=== PATIENT | female | born 1960 | race Caucasian/White ===

== ENCOUNTER → 2020-08-04 13:45 | Outpatient (BNVA) | payer BC, SELFPAY | PROVIDERS: Family Provider Family Medicine; PCP Family Medicine; Visit Provider Obstetrics & Gynecology | DX: Z12.4 Encounter for screening for malignant neoplasm of cervix (principal) | CPT/HCPCS: 88175 ==

== ENCOUNTER → 2022-08-26 09:44 | Outpatient (BNVA) | payer BC, SELFPAY | PROVIDERS: Family Provider Family Medicine; PCP Family Medicine; Visit Provider Family Medicine | DX: Z51.81 Encounter for therapeutic drug level monitoring (principal); E03.9 Hypothyroidism, unspecified; I73.9 Peripheral vascular disease, unspecified; R73.09 Other abnormal glucose; E55.9 Vitamin D deficiency, unspecified | CPT/HCPCS: 80053; 80061; 82306; 83036; 84439; 84443; 85025 ==

== ENCOUNTER → 2022-11-10 09:00 | Outpatient (BNVA) | payer BC, SELFPAY | PROVIDERS: Family Provider Family Medicine; PCP Family Medicine; Visit Provider Family Medicine | DX: I25.10 Atherosclerotic heart disease of native coronary artery without angina pectoris (principal); Z79.899 Other long term (current) drug therapy | CPT/HCPCS: 80061 ==

== ENCOUNTER → 2023-02-21 12:06 | Outpatient (BNVA) | payer MEDICARE, SELFPAY | PROVIDERS: Family Provider Family Medicine; PCP Family Medicine; Visit Provider Internal Medicine Cardiovascular Disease | DX: E03.9 Hypothyroidism, unspecified (principal); R07.9 Chest pain, unspecified; E78.5 Hyperlipidemia, unspecified; I25.10 Atherosclerotic heart disease of native coronary artery without angina pectoris; I65.29 Occlusion and stenosis of unspecified carotid artery; Z48.812 Encounter for surgical aftercare following surgery on the circulatory system; Z98.890 Other specified postprocedural states; I65.9 Occlusion and stenosis of unspecified precerebral artery; F17.210 Nicotine dependence, cigarettes, uncomplicated; R94.31 Abnormal electrocardiogram [ECG] [EKG]; I77.9 Disorder of arteries and arterioles, unspecified | CPT/HCPCS: 36415; 80061; 80076; 93005; 99204 ==

== ENCOUNTER 2023-03-08 08:41 | Outpatient (CLI) | payer MEDICARE, SELFPAY ==
--- NOTE | 2023-03-08 09:00 | CTR_ITS ---
PROCEDURE INFORMATION: Exam: CTA Head With Contrast, Arteriography Exam date and time: 03/08/2023 9:35 AM Age: 63 years old Clinical indication: Condition or disease; Occlusion or stenosis of cerebral arteries; Prior surgery; Surgery date: 6+ months; Surgery type: Bilat subclavians stents, left carptid; Additional info: Carotid and sucbclavina stenosis/ vertigo TECHNIQUE: Imaging protocol: Computed tomographic angiography of the head with contrast. Exam focused on the arteries. 3D rendering (Not supervised by radiologist): MIP and/or 3D reconstructed images were created by the technologist. Radiation optimization: All CT scans at this facility use at least one of these dose optimization techniques: automated exposure control; mA and/or kV adjustment per patient size (includes targeted exams where dose is matched to clinical indication); or iterative reconstruction. Contrast material: OMNI 350; Contrast volume: 95 ml; Contrast route: INTRAVENOUS (IV); REPORTING DATA: Count of CT and Cardiac NM exams in prior 12 months: This patient has received 0 known CTs and 0 known cardiac nuclear medicine studies in the 12 months prior to the current study. COMPARISON: No relevant prior studies available. RADIATION DOSE METRICS: Total DLP (mGy-cm): 1190.63 FINDINGS: ANTERIOR CIRCULATION: Right internal carotid artery: Normal petrous portion right internal carotid artery. 40-50% diameter stenosis intracranial portion. Otherwise, unremarkable. Right middle cerebral artery: No occlusion or significant stenosis. No aneurysm. Right anterior cerebral artery: No occlusion or significant stenosis. No aneurysm. Left internal carotid artery: 30% diameter stenosis distal petrous portion of the left internal carotid artery. 50-69% diameter stenosis intracranial portion. Otherwise, unremarkable. Left middle cerebral artery: No occlusion or significant stenosis. No aneurysm. Left anterior cerebral artery: No occlusion or significant stenosis. No aneurysm. POSTERIOR CIRCULATION: Right vertebral artery: No occlusion or significant stenosis. No aneurysm. Left vertebral artery: 50-69% diameter stenosis of the distal left vertebral artery at the foramen magnum. Otherwise, unremarkable. Basilar artery: No occlusion or significant stenosis. No aneurysm. Right posterior cerebral artery: No occlusion or significant stenosis. No aneurysm. Left posterior cerebral artery: No occlusion or significant stenosis. No aneurysm. Right posterior communicating artery: Normal right posterior communicating artery. Left posterior communicating artery: Normal left posterior communicating artery. Veins: Widely patent intracranial venous sinuses. Brain: Subtle multifocal white matter pathology could be ischemic change. Could be a demyelinating process such as MS. Encephalitis should be considered in the proper clinical setting. MRI no could offer clarification. Cerebral ventricles: No ventriculomegaly. Bones/joints: Unremarkable. No acute fracture. Soft tissues: Unremarkable. PROCEDURE INFORMATION: Exam: CTA Neck With Contrast Exam date and time: 03/08/2023 9:35 AM Age: 63 years old Clinical indication: Condition or disease; Occlusion or stenosis of cerebral arteries; Prior surgery; Surgery date: 6+ months; Surgery type: Bilat subclavians stents, left carptid; Additional info: Carotid and sucbclavina stenosis/ vertigo TECHNIQUE: Imaging protocol: Computed tomographic angiography of the neck with contrast. 3D rendering (Not supervised by radiologist): MIP and/or 3D reconstructed images were created by the technologist. Radiation optimization: All CT scans at this facility use at least one of these dose optimization techniques: automated exposure control; mA and/or kV adjustment per patient size (includes targeted exams where dose is matched to clinical indication); or iterative reconstruction. Contrast material: OMNI 350; Contrast volume: 95 ml; Contrast route: INTRAVENOUS (IV); REPORTING DATA: Count of CT and Cardiac NM exams in prior 12 months: This patient has received 0 known CTs and 0 known cardiac nuclear medicine studies in the 12 months prior to the current study. COMPARISON: CR XR chest 1V [id number] 01/05/2019 2:29 PM RADIATION DOSE METRICS: Total DLP (mGy-cm): 1190.63 FINDINGS: Right common carotid artery: Tiny ulceration versus very tiny dissection of the proximal right common carotid artery. 50-69% diameter stenosis distal right common carotid artery. Otherwise, unremarkable. Right internal carotid artery: 50-69% diameter stenosis proximal right internal carotid artery. Retropharyngeal course of the right internal carotid artery. Otherwise, unremarkable. Right external carotid artery: Greater than 70% diameter stenosis of the proximal right external carotid artery. Otherwise, unremarkable. Left common carotid artery: Multifocal plaque throughout much of the left common carotid artery causing no more than 30% diameter stenosis. Left internal carotid artery: No stenosis of the extracranial segment. No dissection or occlusion. Left external carotid artery: No occlusion or stenosis of the origin. Right vertebral artery: Greater than 70% diameter stenosis origin of the right vertebral artery. Otherwise, unremarkable. Left vertebral artery: Greater than 70% diameter stenosis and possibly as much as 90% diameter stenosis of the most proximal left vertebral artery. 50-69% diameter stenosis distal left vertebral artery at the foramen magnum. Otherwise, unremarkable. Right subclavian artery: Stent in the proximal right subclavian artery is patent and without significant stenosis. Otherwise, unremarkable stent in the proximal left subclavian artery is patent and without stenosis. Otherwise, unremarkable. Aorta: Normal visualized aortic arch. No significant brachiocephalic artery abnormality. Soft tissues: Normal. No significant soft tissue swelling. Bones/joints: No acute fracture. Lungs: Bilateral bullous emphysema. CT/CT angio headneck* 56250/11675 IMPRESSION: 1. 50-69% diameter stenosis intracranial left internal carotid artery. 2. No other significant intracranial arterial pathology. 3. Additional deails as above. See above recommendation regarding MRI. IMPRESSION: 1. Tiny ulceration versus tiny dissection of the proximal right common carotid artery. 2. 50-69% diameter stenosis distal right common carotid artery. 3. 50-69% diameter stenosis proximal right internal carotid artery. Retropharyngeal course of the right internal carotid artery is a normal congenital variant. 4. Greater than 70% diameter stenosis right external carotid artery. 5. Greater than 70% diameter stenosis origin of the right vertebral artery. 6. 70-90% diameter stenosis proximal left vertebral artery. 50-69% diameter stenosis distal left vertebral artery. 7. Additional details as above. REFERENCES: NASCET CRITERIA. The degree of stenosis in the cervical segment of the internal carotid artery is based on NASCET criteria. Normal is no stenosis. Mild is less than 50% stenosis. Moderate is 50-69% stenosis. Severe is 70% to 99% stenosis. Total occlusion is no detectable patent lumen.
[2023-03-08 09:30] LABS: Blood Urea Nitrogen 8 mg/dL (8-23)
[2023-03-08] MEDS: iohexol 350 mg/mL 500 mL Btl (per mL) IV (09:45)
== END 2023-03-08 08:42 | disposition home or self-care (01) ==
PROVIDERS: PCP Family Medicine; Visit Provider Internal Medicine Cardiovascular Disease
DX: I65.23 Occlusion and stenosis of bilateral carotid arteries (principal); I77.1 Stricture of artery; R42 Dizziness and giddiness; I66.9 Occlusion and stenosis of unspecified cerebral artery; Z95.828 Presence of other vascular implants and grafts
CPT/HCPCS: 70496; 70498; 82565; 84520; Q9967

== ENCOUNTER → 2023-05-25 12:51 | Outpatient (BNVA) | payer MEDICARE, SELFPAY | PROVIDERS: PCP Family Medicine; Visit Provider Nurse Practitioner Family | DX: I25.10 Atherosclerotic heart disease of native coronary artery without angina pectoris (principal); I10 Essential (primary) hypertension; F17.210 Nicotine dependence, cigarettes, uncomplicated; Z79.82 Long term (current) use of aspirin | CPT/HCPCS: 99214 ==

== ENCOUNTER 2023-07-12 10:26 | Observation (INO) | payer MEDICARE, SELFPAY ==
--- NOTE | 2023-07-08 10:34 | ECG_ITS ---
[facility] Test Date: 2023-07-08 Pat Name: Angélica Jones Department: Room: Gender: Female [place]: : 1960 Requested By: Ubaldo Rasmussen Order Number: [id number] Carmita MD: Bo Coelho M.D. Measurements Intervals [place] Rate: 88 P: 70 NE: 125 QRS: 7 QRSD: 84 T: 41 QT: 332 QTc: 402 Interpretive Statements SINUS RHYTHM POSSIBLE LEFT ATRIAL ENLARGEMENT [-0.1mV P-WAVE IN V1/V2] LOW QRS VOLTAGE IN PRECORDIAL LEADS [QRS DEFLECTION < 1.0 mV IN CHEST LEADS] Compared to ECG 02/21/2023 12:20:59 Low QRS voltage now present Electronically Signed On 07-09-2023 6:04:02 WRIST LINER by Bo Coelho M.D. [id number]
[2023-07-08 11:07] LABS: Basophils # 0.1 10^3/uL (0.0-0.1); Basophils % 0.7 %; Eosinophils # 0.2 10^3/uL (0.0-0.8); Hematocrit 41.6 % (36-47); Lymphocytes # 2.1 10^3/uL (0.8-4.8); Lymphocytes % 27.8 %; Mean Corpuscular HGB Conc 32.5 g/dL (30-55); Mean Corpuscular Hemoglobin 32.4 pg (27-33); Mean Corpuscular Volume 99.8 fl (85-98); Monocytes # 0.7 10^3/uL (0.2-0.9); Monocytes % 9.1 %; Neutrophils # 4.62 10^3/uL (1.8-7.7); Neutrophils % 60.1 %; Nucleated Red Blood Cells % 0 %; Platelet Count 296 10^3/cmm (157-399); Red Blood Count 4.17 10^6/uL (3.85-5.65); Red Cell Distribution Width 12.3 % (12.1-15.1); White Blood Count 7.67 10^3/uL (3.29-11.43)
--- NOTE | 2023-07-08 13:54 | ANES.PREANE2 ---
Pre-Anesthetic Assessment Height/Weight: Height 1.68 m Operation Date: 07/12/23 07:00 Proposed Procedures p Total vaginal hysterectomy 31023,N81.2, N81.10,N81.6(Not Applicable) - Grant Harp MD s Single incision sling 98987(Not Applicable) - Grant Harp MD s Anterior and posterior colporrhaphy 5768(Not Applicable) - Grant Harp MD s Posterior Repair(Not Applicable) - Grant Harp MD s Sacrospinous fixation 34839(Not Applicable) - Grant Harp MD Social No alcohol and No tobacco Exam alert, oriented x 3 and regular rate & rhythm Airway Submandibular: within normal limits Cervical ROM: within normal limits Mallampati: Class II Pulmonary None reported CV/HEM Peripheral Vascular Disease Subclavian stenosis Carotid Stenosis s/p bilateral CEA Cystoceole, rectoceole Renal Artery Stenosis s/p b/l renal artery stents Metabolic Hyperlipidemia Anesthetic Plan ASA status: 3 Anesthesia: General Medications/Allergies Home Medications Medication Instructions Recorded Confirmed Last Taken Type aspirin 81 mg tablet,delayed 81 mg PO QDAY 06/28/19 07/08/23 07/07/23 History release (Aspir-) guselkumab 100 mg/mL subcutaneous See Rx Instructions SUBCUT .COMPLEX 08/04/20 07/08/23 06/30/23 History syringe (Tremfya) levothyroxine 88 mcg tablet 88 mcg PO DAILY #90 tabs 02/14/23 07/08/23 07/07/23 Rx lisinopril 5 mg tablet 5 mg PO QDAY #90 tabs 02/14/23 07/08/23 07/07/23 Rx nitroglycerin 0.4 mg sublingual 0.4 mg sublingual Q5M PRN chest 02/21/23 07/08/23 Unknown Rx tablet (Nitrostat) pain #30 tabs hydrocodone 5 mg-acetaminophen 325 1 tab PO DAILY PRN pain 30 days 04/05/23 07/08/23 2 Months Ago Rx mg tablet #30 tabs ~05/07/23 evolocumab 140 mg/mL subcutaneous 140 mg SUBCUT Q14D #2 mL 04/22/23 07/08/23 06/26/23 Rx pen injector (Herrera Figueroa) alprazolam 0.25 mg tablet 0.25 mg PO QDAY PRN anxiety #60 05/26/23 07/08/23 07/07/23 Rx tabs Allergies Allergy/AdvReac Type Severity Reaction Status Date / Time plasma protein fraction Allergy Severe ANAPHYLAXIS Verified 07/08/23 10:28 [From [facility]as[facility]] [facility] Anesthesia Medical History Anxiety with depression Palpitations Carotid artery stenosis Peripheral vascular disease, unspecified Non-ST elevation (NSTEMI) myocardial infarction Mixed hyperlipidemia Benign essential HTN Incomplete uterovaginal prolapse Atherosclerotic heart disease of [place] coronary artery without angina pectoris Surgical History History of renal stent Bilateral - 2021 Status post percutaneous transluminal angioplasty ([employer]) (~03/06/14) Cerebral Agiogram/[employer]/Stenting left subclavian artery Hx of CABG (~05/2013) S/P carotid endarterectomy (03/27/14) History of appendectomy Family History Mother Diabetes Hypertension Myocardial infarction CAD (coronary artery disease) Alzheimer's dementia Sister Hypertension Myocardial infarction Brother Hypertension Myocardial infarction Cancer CAD (coronary artery disease) Abdominal aneurysm Father Cancer Stroke Daughter Myocardial infarction Other Hyperlipidemia Social History Smoking and tobacco/nicotine status: current every day tobacco/nicotine user cigarettes Packs smoked per day: 0.25 Alcohol intake: current Alcohol intake frequency: holidays/special occasions only Substance/Drug Use: never 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
[2023-07-12] VITALS (24 sets, daily range): BP systolic 100–141; BP diastolic 51–76; PULSE 58–80; RESP 15–18; TEMP 36.1–37.4; O2SAT 92–100
[2023-07-12] MEDS: sodium chloride 0.9% 1,000 ML 30 ML IV (06:22)
[2023-07-12] MEDS: enoxaparin 30 mg/0.3 mL Syringe SUBCUT (06:25)
[2023-07-12] MEDS: scopolamine 1.5 Patch 1 PATCH TRANSDERMA (06:26)
[2023-07-12 06:48] LABS: Basophils # 0.1 10^3/uL (0.0-0.1); Basophils % 0.6 %; Eosinophils # 0.2 10^3/uL (0.0-0.8); Eosinophils % 2.4 %; Hematocrit 37.9 % (36-47); Lymphocytes # 1.7 10^3/uL (0.8-4.8); Lymphocytes % 19.9 %; Mean Corpuscular HGB Conc 32.7 g/dL (30-55); Mean Corpuscular Hemoglobin 32.1 pg (27-33); Mean Corpuscular Volume 98.2 fl (85-98); Mean Platelet Volume 9.3 fL (7.4-10.4); Monocytes # 0.8 10^3/uL (0.2-0.9); Monocytes % 9.3 %; Neutrophils # 5.62 10^3/uL (1.8-7.7); Neutrophils % 67.6 %; Nucleated Red Blood Cells % 0 %; Platelet Count 289 10^3/cmm (157-399); Red Blood Count 3.86 10^6/uL (3.85-5.65); Red Cell Distribution Width 12.5 % (12.1-15.1); White Blood Count 8.31 10^3/uL (3.29-11.43)
--- NOTE | 2023-07-12 06:54 | P.ANESUD_ITS ---
Pre-Anesthetic Update Pre-Anesthetic Assessment: Date of Surgery/Procedure: 07/12/23 Preop Shelly gnosis: Uterine prolapse, cystocele, rectocele Proposed Procedure: Operation Date: 07/12/23 07:00 Proposed Procedures p Total vaginal hysterectomy 88497,N81.2, N81.10,N81.6(Not Applicable) - Grant Harp MD s Single incision sling 55037(Not Applicable) - Grant Harp MD s Anterior and posterior colporrhaphy 5726(Not Applicable) - Grant Harp MD s Posterior Repair(Not Applicable) - Grant Harp MD s Sacrospinous fixation 53975(Not Applicable) - Grant Harp MD Any changes to Pre-Anesthetic Assessment?: No Last Intake: Intake Last Liquid Date 07/11/23 Last Liquid Time 20:00 Last Solid Date 07/11/23 Last Solid Time 17:00 Labs Last 48hrs: Short CBC 07/12/23 Range/Units 06:15 WBC 8.31 (3.29-11.43) 10^ 3/uL Hgb 12.40 (11.27-16.99) g/ dL Hct 37.9 (36-47) % MCV 98.2 H (85-98) fl Plt Count 289 (157-399) 10^3/c mm Neut % (Auto) 67.6 % Neut # (Auto) 5.62 (1.8-7.7) 10^3/u L Vitals: Temperature 97 F L 07/12/23 05:53 Temperature Source Temporal Artery S can 07/12/23 05:53 Pulse Rate 77 07/12/23 05:53 Pulse Rhythm Regular 07/12/23 06:08 Pulse Strength 3+ Normal 07/12/23 06:08 Respiratory Rate 16 07/12/23 05:53 Blood Pressure 141/76 07/12/23 05:53 Blood Pressure Katelynn n 97 07/12/23 05:53 Pulse Oximetry 95 07/12/23 05:53 Oxygen Delivery Me thod Room Air 07/12/23 06:08 Exam: Pre-Anes Outpt Exam: alert, oriented x 3, clear to auscultation bilaterally and regular rate & rhythm Cardiac Studies: No Data to Display
--- NOTE | 2023-07-12 07:03 | W.PM.OPSUD ---
Surgery/Procedure H&P Update DATE OF PROCEDURE: July 12, 2023 DATE H&P PERFORMED: 07/04/23 H&P UPDATE INFORMATION: I have reviewed H&P completed within last 30 days, I have examined patient prior to procedure and No changes to prior documentation PREOP DIAGNOSIS: Uterine prolapse, cystocele, rectocele PLANNED PROCEDURE: Operation Date: 07/12/23 07:00 Proposed Procedures p Total vaginal hysterectomy 46728,N81.2, N81.10,N81.6(Not Applicable) - Grant Harp MD s Single incision sling 38759(Not Applicable) - Grant Harp MD s Anterior and posterior colporrhaphy 5726(Not Applicable) - Grant Harp MD s Posterior Repair(Not Applicable) - Grant Harp MD s Sacrospinous fixation 23687(Not Applicable) - Grant Harp MD
[2023-07-12] MEDS: ceFOXitin 2,000 MG in sodium chloride 0.9% (plus) 50 ML 100 MG IV (07:07)
[2023-07-12 07:08] LABS: Alanine Aminotransferase 7 U/L (0-33); Albumin Level 3.8 g/dL (3.5-5.2); Alkaline Phosphatase 121 U/L (35-105); Anion Gap 13.2 (5-19); Aspartate Amino Transferase 14 U/L (0-32); Blood Urea Nitrogen 8 mg/dL (8-23); Calcium 8.6 mg/dL (8.5-10.5); Carbon Dioxide 26 mmol/L (22-29); Chloride 107 mmol/L (98-107); Globulin 3.5 g/dL (1.3-4.6); Glucose 108 mg/dL (65-115); Osmolality Calculated 293 mOsm/kg (285-295); Potassium 4.2 mmol/L (3.5-5.1); Sodium 142 mmol/L (136-145); Total Bilirubin 0.3 mg/dL (0.15-1.2); Total Protein 7.3 g/dL (6.6-8.7)
[2023-07-12 07:43] LABS: Add Urine Microscopic? NO; Charge for UA Resulting for Rev
[2023-07-12 07:51] LABS: Bilirubin Urine Neg (Negative); Blood Urine Neg (Negative); Glucose Urine UA Norm (Normal); Ketones Urine Negative (Negative); Leukocyte Esterase Urine Negative (Negative); Nitrate Urine Negative (Negative); Protein Urine Neg (Negative); Urine Appearance Clear (CLEAR); Urine Color Straw (Yellow); Urobilinogen Urine Neg (Negative); pH Urine 7 (5-7)
[2023-07-12] MEDS: lidocaine-epi 2% PF 1:200,000 20 mL SDV XX (07:56)
[2023-07-12] MEDS: lidocaine-epi 2% PF 1:200,000 20 mL SDV INJECTION (09:16)
--- NOTE | 2023-07-12 10:04 | PM.OP ---
Operative Report Date of procedure: July 12, 2023 Pre-op diagnosis: Uterine prolapse Cystocele Rectocele Post-op diagnosis: same Procedure done: Total vaginal hysterectomy Anterior colporrhaphy augmented with allograft Single incision mid urethral sling Posterior colporrhaphy Sacrospinous fixation Cystoscopy Implants: Coloplast Altis sling Coloplast dermis allograft Surgeon: Grant Harp MD Estimated blood loss (mL): 75 IV fluids (mL): 2,000 Urine output (mL): 300 Complications: None Procedure: After informed consent and risks, benefits, indications and alternatives reviewed with the patient was taken to the operating room. The patient was placed in dorsal lithotomy position prepped, and draped in the usual sterile fashion. The pre-procedure timeout verifying the correct patient, procedure, site and side, could not requirements was performed and acknowledge by the OR team. A Bell catheter was placed. A Bookwalter vaginal retractor was placed into the vagina in usual manner visualize the cervix. Cervix was grasped with a single tooth tenaculum and circumferentially infiltrated with 2% lidocaine with epinephrine. Then cervix was circumferentially incised with bovie and the bladder was dissected off the pubovesical cervical fascia anteriorly with a sponge stick and Metzenbaum scissors. The anterior peritoneal reflection was identified and the anterior cul-de-sac was entered sharply with Metzenbaum scissors. The same procedure was performed posteriorly and a posterior colpotomy was made through the posterior cul-de-sac space without difficulty and the posterior blade of the Bookwalter vaginal retractor was advanced posteriorly into the cul-de-sac. At this time, the left and right uterosacral ligaments were isolated and ligated with 0 Vicryl. The LigaSure device was placed over the uterosacral ligaments on either side and was then used in a serial fashion up through the cardinal ligaments bilaterally cross-clamped, cut, and sealed with the LigaSure device. Finally, the uterine arteries were cross-clamped, cut, sealed and ligated with the LigaSure device. Hemostasis was assured. The broad ligaments were then serially clamped, sealed and cut with the LigaSure device on both sides. Excellent hemostasis was visualized. Both cornua were clamped, sealed and cut with the LigaSure device. Then the pedicles were then suture ligated with excellent hemostasis. The uterus was excised and submitted for pathologic evaluation. No other abnormalities were noted in the pelvic cavity. Good hemostasis was assure on both sides. The peritoneum was then closed in a pursestring fashion with 0 Vicryl suture. The vaginal cuff angles were closed with [id number] #0 Vicryl suture on both sides and transfixed with the ipsilateral cardinal and uterosacral ligaments. The remainder of the vaginal cuff was closed with #0 Vicryl in a running locked fashion. Then a vertical midline incision was made beneath the midurethra, nearly 1.5 cm length. Careful submucosal dissection was performed bilaterally up to the interior portion of the inferior pubic ramus. The insertion of adductor longus tendon on the patient?s pubic ramus was identified as reference land tammy. Palpated the notch along the internal edge of ischiopubic ramus where the adductor longus tendon and the inferior pubic ramus meet. The Altis single incision sling (SIS) was selected. Then the needle of the SIS inserted aiming at the location of this notch. One of the integrated self-fixating tips place onto the needle by sliding it over the end of the needle. The needle/sling assembly was inserted toward the location of identified reference notch making sure that the flat of the handle is perpendicular to the desired path. The needle was tracked along the posterior surface of the ischiopubic ramus until the midline tammy on the mesh is approximately at the midline position under the urethra. The needle was removed and the same was repeated on the contralateral side until the appropriate sling tension under the urethra was achieved ensuring that the mesh lays flat. The needle was removed and vaginal incision was closed in a running interlocking fashion with 2-0 Vicryl. The posterior vaginal mucosa is opened in the routine fashion as Posterior Repair. A finger is inserted through the incision in the posterior vaginal mucosa, dissecting out the rectovaginal space (RVS). The right rectal pillar (RRP) is identified. The rectal pillar can be bluntly perforated either with the finger or with the tip of a long Nanette clamp. A Rishi retractor is used for exposing the rectovaginal space in order to enter the pararectal space with retraction of the cardinal ligament, vagina, and rectum. Displacing the rectum to the left and the cardinal ligament and ureter anteriorly. A sponge dissector is used to bluntly dissect the sacrospinous ligament removing areolar tissue. The ischial spine was palpated directly, and a area approximately 2 cm medial to the spine was selected for insertion of the Anchorsure transvaginal sacrospinous fixation system. One end of the suture of Anchoresure system inserted through the sacrospinous ligament is placed through the muscular layer of the vagina. In a similar manner, the second suture is placed. The opposite end of the suture in the sacrospinous ligament is left free and held on a small hemostat. Then traction on this suture will draw the vaginal vault directly to the ligament, where a square knot affixes it to the sacrospinous ligament. After the ileana stich is tied the second safety stich is tied. Then the colporrhaphy/vaginal repair is carried out in routine fashion. A posterior repair was performed next. An incision was made across the introitus. Metzenbaum scissors were used to tunnel beneath posterior vaginal mucosa until the apex of the rectocele bulge was reached. At this point, the rectum was from the posterior vaginal mucosa using sharp and blunt dissection, and the rectal bulge imbricated in the midline with interrupted sutures of 2-0 vicryl suture. The patient was given Bludigo IV. The vaginal mucosa incision was closed in a running interlocking fashion with 2-0 Vicryl. At this time, instruments were removed from the vagina at hemostasis assured. Then the Bell catheter was removed and cystoscope was inserted. The bladder was filled with sterile water. Complete evaluation of the bladder mucosa was performed noting no lacerations, dimpling, tears, bleeding of the mucosa or muscular layers. Both ureteral orifices were identified. Prompt excretion of blue urine from both ureteral orifices was noted. Cystoscope was withdrawn. Bell catheter was then placed yielding clear toro urine. A vaginal packing with Premarin cream was placed and the patient was taken out of dorsal lithotomy position and awakened from the general anesthesia. The patient tolerated the procedure well and was taken to the PACU recovery room in a stable condition. Sponge, lap, needle and instruments counts were correct x3.
[2023-07-12] MEDS: HYDROcodone-acetaminophen 5-325 mg Tablet PO (11:00)
[2023-07-12] MEDS: ketorolac 30 mg/mL INJ IVP ×3 (11:00→22:20)
[2023-07-12] MEDS: morphine 4 mg/mL SDV 1 mL IVP (11:45)
[2023-07-12] MEDS: dextrose 5%-lactated ringers 1,000 ML 125 ML IV ×2 (13:37→22:20)
--- NOTE | 2023-07-12 15:47 | ANE.PACU2 ---
Inpatient post-anesthesia follow up: Airway intact: Yes Vital signs: Temperature 98 F Pulse Rate 66 Respiratory Rate 16 Blood Pressure 118/60 Pulse Oximetry 93 Oxygen Delivery Me thod Room Air Oxygen Flow Rate 8 Fraction of Inspir ed Oxygen Hydration adequate: Yes Nausea and vomiting: No Pain level: 3 Mental status: Baseline
[2023-07-12] MEDS: sodium chloride 0.9% 500 ML IV ×2 (18:20→21:19)
[2023-07-12] MEDS: docusate sodium 100 mg Capsule PO (18:23)
--- NOTE | 2023-07-12 21:15 | PC.NURSE ---
This nurse called Albino to let him know pt urine output has been about 25ml an hour since arrival to OB. I let him know pt recived one bolus of NS at 1815. He gave orders to do another bolus.
[2023-07-13 04:00] VITALS: BP 105/51; PULSE 81; RESP 15; TEMP 36.6; O2SAT 95
--- NOTE | 2023-07-13 05:40 | PC.NURSE ---
Vaginal packing removed by Omid Esparza RN on 07/13/23 @8236.
[2023-07-13 05:42] LABS: Hematocrit 25.6 % (36-47); Mean Platelet Volume 9.4 fL (7.4-10.4); Platelet Count 209 10^3/cmm (157-399); Red Blood Count 2.56 10^6/uL (3.85-5.65); Red Cell Distribution Width 12.6 % (12.1-15.1)
[2023-07-13] MEDS: ibuprofen 800 mg tablet PO (11:11)
[2023-07-13] MEDS: sodium chloride 0.9% 500 ML IV (11:11)
[2023-07-13] MEDS: docusate sodium 100 mg Capsule PO (11:11)
[2023-07-13 11:15] VITALS: BP 120/66; PULSE 75; RESP 16; TEMP 37.2
--- NOTE | 2023-07-13 12:58 | P.DS_ITS ---
Discharge Providers STATIONARY EQUIPMENT MECHANIC Date of Admission: 07/12/23 10:26 Date of Discharge: 07/13/23 Attending Provider at Admission: Grant Harp MD Attending Provider at Discharge: Grant Harp MD Primary Care Provider: Jhonatan Walter MD Reason for Visit Reason for Visit: N81.2 Hospital Course Hospital Course Mrs. Jones with a history of pelvic organ prolapse, cystocele, rectocele. She was admitted for planned total vaginal hysterectomy, anterior colporrhaphy augmented with allograft, single incision mid urethral sling, posterior colporrhaphy and sacrospinous fixation. The procedures were performed without complication. Overnight observation uneventful. She is afebrile and hemodynamically stable as well. The day 1. Tolerating diet well. Ambulating without difficulty. PVR was elevated and she will be discharged home with a Bell catheter and instructed to return back to the clinic Tuesday to discontinue the Bell catheter. She was also counseled regarding pelvic rest for 6 weeks (no sex, no tampons, no vaginal douches). Return to the emergency room if any fever, increased bleeding or pain. Physical Exam Narrative: GA: Alert and oriented ?3. HEENT: WNL. Heart: Regular rate and rhythm. Lungs: Clear to auscultation bilaterally. Abdomen: Bowel sounds present, nontender. SOCIAL WORK MANAGER: Spotting bleeding. Extremities: No edema, no cyanosis, no calves pain. Urinary Catheter Management: Bell: Cath Placed During This Visit: yes, but has since been removed by the nurse Reason for Continuing Indwelling Catheter: Decision to DC Catheter Urinary Catheter Date of Insertion: 07/12/23 Urinary Catheter Time of Insertion: 07:37 Date Urinary Catheter Removed: 07/13/23 Time Urinary Catheter Discontinued: 05:30 History History History 2 Term 2 0 Miscarriages/Ectopic 0 Living Children 2 Discharge Data Studies Completed and Pending Pending at discharge Category Date Time Status Pathology: Surgical [PTH] Routine Pth 07/12/23 09:08 Received Laboratory Results WBC 8.40 10^3/uL (3.29-11.43) 07/13/23 05:30 RBC 2.56 10^6/uL (3.85-5.65) L 07/13/23 05:30 Hgb 8.20 g/dL (11.27-16.99) L D 07/13/23 05:30 Hct 25.6 % (36-47) L D 07/13/23 05:30 MCV 100.0 fl (85-98) H 07/13/23 05:30 MCH 32.0 pg (27-33) 07/13/23 05:30 MCHC 32.0 g/dL (30-55) 07/13/23 05:30 RDW 12.6 % (12.1-15.1) 07/13/23 05:30 Plt Count 209 10^3/cmm (157-399) 07/13/23 05:30 MPV 9.4 fL (7.4-10.4) 07/13/23 05:30 Neut % (Auto) 67.6 % 07/12/23 06:15 Lymph % (Auto) 19.9 % 07/12/23 06:15 Boyd % (Auto) 9.3 % 07/12/23 06:15 Eos % (Auto) 2.4 % 07/12/23 06:15 Baso % (Auto) 0.6 % 07/12/23 06:15 Neut # (Auto) 5.62 10^3/uL (1.8-7.7) 07/12/23 06:15 Lymph # (Auto) 1.7 10^3/uL (0.8-4.8) 07/12/23 06:15 Boyd # (Auto) 0.8 10^3/uL (0.2-0.9) 07/12/23 06:15 Eos # (Auto) 0.2 10^3/uL (0.0-0.8) 07/12/23 06:15 Baso # (Auto) 0.1 10^3/uL (0.0-0.1) 07/12/23 06:15 Nucleated RBC % (auto) 0 % 07/12/23 06:15 Nucleated RBCs # 0.0 /100WBC 07/12/23 06:15 Sodium 142 mmol/L (136-145) 07/12/23 06:15 Potassium 4.2 mmol/L (3.5-5.1) 07/12/23 06:15 Chloride 107 mmol/L (98-107) 07/12/23 06:15 Carbon Dioxide 26 mmol/L (22-29) 07/12/23 06:15 Anion Gap 13.2 (5-19) 07/12/23 06:15 BUN 8 mg/dL (8-23) 07/12/23 06:15 Creatinine 0.7 mg/dL (0.5-0.9) 07/12/23 06:15 GFR Calculation 84.0 mL/min (90-130) L 07/12/23 06:15 Glucose 108 mg/dL (65-115) 07/12/23 06:15 Calculated Osmolality 293 mOsm/kg (285-295) 07/12/23 06:15 Calcium 8.6 mg/dL (8.5-10.5) 07/12/23 06:15 Total Bilirubin 0.3 mg/dL (0.15-1.2) 07/12/23 06:15 AST 14 U/L (0-32) 07/12/23 06:15 ALT 7 U/L (0-33) 07/12/23 06:15 Alkaline Phosphatase 121 U/L (35-105) H 07/12/23 06:15 Total Protein 7.3 g/dL (6.6-8.7) 07/12/23 06:15 Albumin 3.8 g/dL (3.5-5.2) 07/12/23 06:15 Globulin 3.5 g/dL (1.3-4.6) 07/12/23 06:15 Urine Color Straw (Yellow) 07/12/23 07:39 Urine Appearance Clear (CLEAR) 07/12/23 07:39 Urine pH 7 (5-7) 07/12/23 07:39 Ur Specific [place] 1.000 (1.005-1.030) L 07/12/23 07:39 Urine Protein Neg (Negative) 07/12/23 07:39 Urine Glucose (UA) Norm (Normal) 07/12/23 07:39 Urine Ketones Negative (Negative) 07/12/23 07:39 Urine Blood Neg (Negative) 07/12/23 07:39 Urine Nitrate Negative (Negative) 07/12/23 07:39 Urine Bilirubin Neg (Negative) 07/12/23 07:39 Urine Urobilinogen Neg mg/dL (Negative) 07/12/23 07:39 Ur Leukocyte Esterase Negative (Negative) 07/12/23 07:39 Blood Type O Positive 02/13/24 06:15 Rho(D) Type Rh positive 07/12/23 06:15 Antibody Screen Negative 07/12/23 06:15 Vitals Last Vital Signs Temp 99.0 F 07/13/23 11:15 Pulse 75 07/13/23 11:15 Resp 16 07/13/23 11:15 BP 120/66 07/13/23 11:15 Pulse Ox 95 07/13/23 04:00 O2 Del Method Room Air 07/13/23 11:15 O2 Flow Rate 8 07/12/23 10:23 Results Labs OB ([facility]): Blood Type O Positive 07/12/23 Antibody Screen Negative 07/12/23 Hct 25.6 % (36-47) L 07/13/23 Hgb 8.20 g/dL (11.27-16.99) L 07/13/23 Rho(D) Type Rh positive 07/12/23 Plt Count 209 10^3/cmm (157-399) 07/13/23 TSH 2.26 uIU/mL (0.27-4.20) 08/26/22 Free T4 1.32 ng/dL (0.82-1.77) 08/26/22 Hemoglobin A1c 5.5 % (4.0-6.0) 08/26/22 Pap Smear Interpret See note A 08/04/20 Discharge Plan Discharge Patient Disposition: Home Condition: Stable Prescriptions: New ibuprofen 800 mg tablet 800 mg PO TID PRN (Reason: pain) Qty: 60 0RF hydrocodone-acetaminophen 5-325 mg tablet 1 tab PO Q4H PRN (Reason: pain) Qty: 20 0RF Colace 100 mg capsule 100 mg PO BID Qty: 60 0RF acetaminophen 325 mg capsule 325 mg PO Q4H PRN (Reason: fever or pain) Qty: 60 0RF Continued Tremfya 100 mg/mL syringe See Rx Instructions SUBCUT .COMPLEX Rx Instructions: SUBCUT every other month for psoriasis; aspirin [Aspir-81] 81 mg tablet,delayed release (DR/EC) 81 mg PO QDAY nitroglycerin [Nitrostat] 0.4 mg tablet, sublingual 0.4 mg SUBLINGUAL Q5M PRN (Reason: chest pain) Qty: 30 3RF lisinopril 5 mg tablet 5 mg PO QDAY Qty: 90 3RF levothyroxine 88 mcg tablet 88 mcg PO DAILY Qty: 90 3RF hydrocodone-acetaminophen 5-325 mg tablet 1 tab PO DAILY PRN (Reason: pain) 30 Days Qty: 30 0RF Repatha SureClick 140 mg/mL pen injector 140 mg SUBCUT Q14D Qty: 2 6RF alprazolam 0.25 mg tablet 0.25 mg PO QDAY PRN (Reason: anxiety) Qty: 60 3RF Discharge Orders: Discharge Order (Routine); Ordered 07/13/23 Ordered By: Grant Harp Referrals: Grant Harp MD [Physician] - 08/22/23 1:15 pm Radha Patiño APN, JANE [Nurse Practitioner] - 07/27/23 12:45 pm Discharge Diet: GI Soft and Soft Mechanical Discharge Activity: Limit activity as instructed Patient Instructions: Bladder Sling for Women (GEN), Vaginal Hysterectomy (GEN), Anterior Vaginal Repair (GEN), Posterior Vaginal Repair (GEN), Opioid Safety Activity Restrictions/Additional Instructions: 1. Please call [facility] on next working day to make your post-operative appointment in 2 weeks. 2. Please stay home until you come back to the clinic on first post- hospatilization check up. 3. Please follow instructions on your medications CAREFULLY. 4. If you have abdominal incision, do not cover it unless dressing is necessary because of drainage. OK to shower, but avoid bath. Leave steri-strips until they fall off. If they are still on one week after surgery, you may remove them. 5. If you had vaginal surgery or vaginal repair, Dr. Harp may instruct you to take SITZ bath. 6. Yellow, blood tinged odorous vaginal discharge is usually normal after hysterectomy or vaginal surgeries. 7. No SEXUAL INTERCOURSE, tampons, or douches until you are completely released from the post-operative care. 8. Avoid constipation by eating right and maybe using some Metamucil or Milk of Magnesia. 9. All prescription refills are given during the working hours. Please do no wait till it runs out. Call the clinic at [phone] before your medication runs out. The clinic will get in touch with your doctor to prescribe medications if necessary. 10. Please remain within 40 mile radius from our hospital because emergencies do happen now and then during the post-operative period. 11. If you have stairs at home, take one step at a time slowly and minimize the number of trips. It helps to stay in one floor for the next few days. No lifting except what you can lift by one hand until you are released from the post-operative care. 12. Driving is discouraged until you are well healed. It may be 3-4 weeks before you feel strong enough to drive. You should be able to turn and look through the rear window without pain and you should be able to push the brake pedal very hard without pain before you drive. No fast rules, but SAFETY should be your primary concern. DO NOT drive if you are on sedating medications such as narcotics. 13. Call the clinic (during working hours) to make urgent appointment or go to the Emergency room, if any of the following occurs: i. Vaginal bleeding becomes heavy, more than a period. ii. Incision becomes red and sore, or drains pus. iii. Your TEMPERATURE is over 100.4F or you have chill. iv. IV site becomes red and swollen (a little ``knot?? is usually OK) v. Persistent nausea and vomiting vi. Persistent constipation or diarrhea vii. Rash or allergic reaction to medications. Discharge Attestations STATIONARY EQUIPMENT MECHANIC Time Spent in Discharge Care*: greater than 30 min Coding Level of Care Code Acute Code for Chg Fwd
[2023-07-13 14:48] VITALS: BP 121/75; PULSE 81; RESP 16; TEMP 36.9
== END 2023-07-13 14:39 | disposition home or self-care (01) ==
LOC: OBGYN 10:28
PROVIDERS: Anesthesiology; Admitting Provider Obstetrics & Gynecology; PCP Family Medicine; Visit Provider Obstetrics & Gynecology
PROC: (CPT 57260; principal; 2023-07-12 07:00)
PROC: (CPT 57288; 2023-07-12 07:00)
PROC: 0JQC0ZZ Repair Pelvic Region Subcutaneous Tissue and Fascia, Open Approach (ICD-10-PCS; CPT 57240; 2023-07-12 07:00)
PROC: (CPT 57250; 2023-07-12 07:00)
PROC: (CPT 57282; 2023-07-12 07:00)
DX: N81.4 Uterovaginal prolapse, unspecified (principal); Z79.82 Long term (current) use of aspirin; E78.2 Mixed hyperlipidemia; Z95.1 Presence of aortocoronary bypass graft; F17.210 Nicotine dependence, cigarettes, uncomplicated
CPT/HCPCS: 57260; 57282; 57288; 58260; 36415; 51702; 51798; 80053; 81003; 85025; 85027; 86850; 86900; 88305; 93005; C1713; C1762; G0378; J0694; J1100; J1170; J1650; J1885; J2250; J2270; J2405; J2704; J2710; J3010; J3490; J7030; J7040; J7121

== ENCOUNTER → 2023-09-26 11:14 | Outpatient (BNVA) | payer MEDICARE, SELFPAY | PROVIDERS: PCP Family Medicine; Visit Provider Family Medicine | DX: Z00.00 Encounter for general adult medical examination without abnormal findings (principal); Z51.81 Encounter for therapeutic drug level monitoring; I25.10 Atherosclerotic heart disease of native coronary artery without angina pectoris; E55.9 Vitamin D deficiency, unspecified; E03.9 Hypothyroidism, unspecified; R10.9 Unspecified abdominal pain; Z13.220 Encounter for screening for lipoid disorders; R10.11 Right upper quadrant pain; F41.8 Other specified anxiety disorders; I10 Essential (primary) hypertension | CPT/HCPCS: 80053; 80061; 82306; 83690; 84439; 84443; 85025 ==

== ENCOUNTER 2023-09-29 08:02 | Outpatient (CLI) | payer MEDICARE, SELFPAY ==
--- NOTE | 2023-09-29 08:30 | USR_ITS ---
PROCEDURE INFORMATION: Exam: US Abdomen, Limited; Right Upper Quadrant Exam date and time: 09/29/2023 8:17 AM Age: 63 years old Clinical indication: Abdominal pain; Localized; Right upper quadrant (ruq); Additional info: Ruq pain - ruq US TECHNIQUE: Imaging protocol: Real time ultrasound of the abdomen with image documentation. Limited exam focused on the right upper quadrant. Total images: 58 COMPARISON: US gall bladder [id number] 02/08/2017 8:33 AM FINDINGS: Liver: 12.0 cm Liver length. The liver is normal in echogenicity and configuration. No masses are detected. There is no intrahepatic biliary dilatation. Gallbladder: The gallbladder has a normal appearance with normal wall thickness and no pericholecystic fluid nor inflammatory changes. No gallstones are seen. No sludge is detected. Biliary ducts: Common bile duct diameter is 2 mm. Pancreas: The pancreas has a normal echogenicity and configuration. Right kidney: Right kidney with normal parenchymal echogenicity and no hydronephrosis, calculi, solid masses, nor perinephric fluid collection. 11.0 cm length of right kidney. Portal venous: Spectral sonography demonstrates patent portal vein with hepatopedal blood flow. Normal respiratory phasicity on spectral waveform, indicating preserved compliance of the liver. No portal venous abnormality identified. US/US abdomen limited [id number] IMPRESSION: No acute findings.
== END 2023-09-29 08:03 | disposition home or self-care (01) ==
LOC: RAD 08:05
PROVIDERS: PCP Family Medicine; Visit Provider Family Medicine
DX: R10.11 Right upper quadrant pain (principal)
CPT/HCPCS: 76705

== ENCOUNTER → 2023-11-16 15:06 | Outpatient (BNVA) | payer MEDICARE, SELFPAY | PROVIDERS: PCP Family Medicine; Visit Provider Internal Medicine Cardiovascular Disease | DX: I25.10 Atherosclerotic heart disease of native coronary artery without angina pectoris (principal); I10 Essential (primary) hypertension; E78.2 Mixed hyperlipidemia; I73.9 Peripheral vascular disease, unspecified; I65.23 Occlusion and stenosis of bilateral carotid arteries; I77.1 Stricture of artery; I65.02 Occlusion and stenosis of left vertebral artery; Z72.0 Tobacco use | CPT/HCPCS: 99214 ==

== ENCOUNTER 2024-02-16 11:11 | Outpatient (CLI) | payer MEDICARE, SELFPAY ==
--- NOTE | 2024-02-16 11:18 | XRR_ITS ---
PROCEDURE INFORMATION: Exam: XR Right Foot Exam date and time: 02/16/2024 8 oncologic picture use and looks very nice os could talk to okay well okay view tiny inferior right calcaneal spur. Otherwise, unremarkable. Age: 64 years old Clinical indication: Pain; Foot; Right; Additional info: Pain of toe right foot Other procedure information: 43 AM TECHNIQUE: Imaging protocol: Radiologic exam of the right foot. Views: 3 or more views. COMPARISON: No relevant prior studies available. FINDINGS: Bones/joints: Tiny right inferior calcaneal spur. Otherwise, unremarkable. Soft tissues: Normal. XR/XR foot RT min 3V* [id number] IMPRESSION: No acute findings.
== END 2024-02-16 11:12 | disposition home or self-care (01) ==
LOC: RAD 11:15
PROVIDERS: PCP Family Medicine; Visit Provider Family Medicine
DX: M79.674 Pain in right toe(s) (principal)
CPT/HCPCS: 73630

== ENCOUNTER → 2024-05-21 13:43 | Outpatient (BNVA) | payer MEDICARE, SELFPAY | PROVIDERS: PCP Family Medicine; Visit Provider Internal Medicine Cardiovascular Disease | DX: I25.10 Atherosclerotic heart disease of native coronary artery without angina pectoris (principal); I10 Essential (primary) hypertension; E78.2 Mixed hyperlipidemia; I73.9 Peripheral vascular disease, unspecified; I65.23 Occlusion and stenosis of bilateral carotid arteries; I77.1 Stricture of artery; Z98.890 Other specified postprocedural states; F17.210 Nicotine dependence, cigarettes, uncomplicated | CPT/HCPCS: 99214 ==

== ENCOUNTER → 2024-10-17 10:09 | Outpatient (BNVA) | payer MEDICARE, SELFPAY | PROVIDERS: PCP Family Medicine; Visit Provider Family Medicine | DX: Z00.00 Encounter for general adult medical examination without abnormal findings (principal); I77.1 Stricture of artery; Z13.6 Encounter for screening for cardiovascular disorders; E03.9 Hypothyroidism, unspecified; R10.11 Right upper quadrant pain; I10 Essential (primary) hypertension; Z51.81 Encounter for therapeutic drug level monitoring; I65.02 Occlusion and stenosis of left vertebral artery | CPT/HCPCS: 80053; 80061; 84439; 84443; 85025; 86141 ==

== ENCOUNTER 2024-10-18 15:44 | Outpatient (CLI) | payer MEDICARE, SELFPAY ==
--- NOTE | 2024-10-18 16:00 | US_ITS ---
WS: [id number] RIGHT UPPER QUADRANT ULTRASOUND HISTORY: Right upper quadrant pain COMPARISON: 09/29/2023 Liver: 10.1 cm in length. Small liver. Liver is slightly echogenic. Surface of the liver is nodular and slightly undulating suggesting cirrhosis. No mass identified. Portal Vein: Normal hepatopetal flow with monophasic waveform. Gallbladder: Normally distended gallbladder with no stones or wall thickening. CBD: 0.3 cm Pancreas: Normal size and echogenicity. Right kidney: 9.7 cm in length. Normal size and echogenicity. No hydronephrosis or mass. Aorta and IVC: Unremarkable abdominal aorta and IVC. No ascites. US/US abdomen limited [id number] IMPRESSION: 1. No cholelithiasis. 2. Small liver with undulating surface suggestive of cirrhosis. 3. No hepatobiliary duct dilatation.
== END 2024-10-18 15:45 | disposition home or self-care (01) ==
LOC: RAD 15:46
PROVIDERS: PCP Family Medicine; Visit Provider Family Medicine
DX: R10.11 Right upper quadrant pain (principal); R93.2 Abnormal findings on diagnostic imaging of liver and biliary tract
CPT/HCPCS: 76705

== ENCOUNTER 2024-11-02 09:54 | Outpatient (CLI) | payer MEDICARE, SELFPAY ==
--- NOTE | 2024-11-02 10:00 | NM_ITS ---
WS: [id number] NUCLEAR MEDICINE HIDA SCAN WITH GALLBLADDER EJECTION FRACTION HISTORY: RUQ pain with eating COMPARISON: 03/04/2017, ultrasound 10/18/2024 TECHNIQUE: The patient was intravenously injected with 8.1 mCi of TC99m Mebrofenin. Immediate imaging over the right upper quadrant was followed by 5 minute image and additional images for a total of 60 minutes. Normal uptake of radiotracer throughout the liver. Activity identified in the gallbladder at 15 minutes and well distended by 60 minutes. Activity in the proximal small bowel was seen by 20 minutes. Good washout of the radiotracer from the liver by 60 minutes. The patient then drank 8 ounces of Ensure Plus. Ejection fraction at 60 minutes was 92%. Normal GB ejection fraction is 35-75%. Post fatty meal symptoms: None. NM/NM hepatobiliary w phar* [id number] IMPRESSION: 1. Normal HIDA scan. 2. Normal gallbladder ejection fraction.
== END 2024-11-02 09:55 | disposition home or self-care (01) ==
PROVIDERS: PCP Family Medicine; Visit Provider Family Medicine
DX: R10.11 Right upper quadrant pain (principal)
CPT/HCPCS: 78227; A9537

== ENCOUNTER → 2024-11-21 09:32 | Outpatient (BNVA) | payer MEDICARE, SELFPAY | PROVIDERS: PCP Family Medicine; Visit Provider Nurse Practitioner Family | DX: I25.10 Atherosclerotic heart disease of native coronary artery without angina pectoris (principal); I10 Essential (primary) hypertension; I65.23 Occlusion and stenosis of bilateral carotid arteries; I77.1 Stricture of artery; E78.5 Hyperlipidemia, unspecified; Z79.82 Long term (current) use of aspirin; F17.210 Nicotine dependence, cigarettes, uncomplicated; Z95.1 Presence of aortocoronary bypass graft | CPT/HCPCS: 99214 ==

== ENCOUNTER → 2025-05-10 13:43 | Outpatient (BNVA) | payer MEDICARE, SELFPAY | PROVIDERS: PCP Family Medicine; Visit Provider Obstetrics & Gynecology | DX: R30.0 Dysuria (principal) | CPT/HCPCS: 84315; 87086 ==